=== PATIENT | male | born 1955 | race Caucasian/White ===

== ENCOUNTER 2021-09-06 12:02 | Emergency (ER) | payer OTHER ==
[2021-09-06] MEDS ORDERED: HYDROcodone/Acetaminophen 7.5/325 mg Tablet ONE (12:54)
== END 2021-09-06 13:24 | disposition home or self-care (01) ==
LOC: CSHERS 12:02
DX: S93.401A Sprain of unspecified ligament of right ankle, initial encounter (principal); E11.9 Type 2 diabetes mellitus without complications; X50.9XXA Other and unspecified overexertion or strenuous movements or postures, initial encounter

== ENCOUNTER 2022-02-07 16:45 | Inpatient (IN) | payer OTHER ==
[~2022-02-07 16:45] MED LIST: Iopamidol 300 61% 100 ML VIAL FS ONE
[2022-02-07] MEDS ORDERED: Pantoprazole 40 MG VIAL ONE (17:26)
[2022-02-07 17:44] LABS: #Monocytes 0.4 10x3/uL (0.0-1.1); #Neutrophils 4.7 10x3/uL (1.5-8.4); %Basophils 0.5 % (0.0-2.0); %Eosinophils 0.5 % (0.0-6.0); %Lymphocytes 12.4 % (18.0-47.0); %Monocytes 6.1 % (0.0-10.0); %Neutrophils 80.2 % (40.0-75.0); Hemoglobin 8.6 g/dL (13.5-17.5); Mean Corpuscular HGB CONC 32.6 g/dL (32.0-36.0); Mean Corpuscular Hemoglobin 28.3 pg (27.0-33.0); Mean Corpuscular Volume 86.8 fl (81.2-95.1); Mean Platelet Volume 9.8 fl (7.4-10.4); Platelet Count 146 10x3/uL (150-450); RBC Distribution Width 18.6 % (11.5-14.5); Red Blood Cell (RBC) Count 3.04 10x6/uL (4.32-5.72); White Blood Cell (WBC) Count 5.9 10x3/uL (3.5-10.5)
[2022-02-07 17:51] LABS: INR-International Normal Ratio 1.1; PTT 25.4 sec (22.0-33.0); Prothrombin Time 11.9 sec (9.5-12.1)
[2022-02-07 17:56] LABS: ALT (SGPT) 47 U/L (8-55); AST (SGOT) 70 U/L (5-34); Albumin 3.3 g/dL (3.4-4.8); Alkaline Phosphatase 365 U/L (40-110); Anion Gap 17 mmol/L (10-20); BUN (Urea Nitrogen) 21 mg/dL (8.4-25.7); Bilirubin, Total 1.3 mg/dL (0.2-1.2); CK (CPK) 101 U/L (30-200); Calc. Creatinine Clearance 0 mL/min (70-130); Calcium 8.8 mg/dL (7.8-10.44); Carbon Dioxide 22 mmol/L (23-31); Chloride 103 mmol/L (98-107); Estimated GFR 103; Globulin 2.9 g/dL (2.4-3.5); Glucose 123 mg/dL (80-115); Potassium 3.6 mmol/L (3.5-5.1); Protein, Total 6.2 g/dL (5.8-8.1); Sodium 138 mmol/L (136-145)
[2022-02-07] MEDS ORDERED: Promethazine HCl 25 MG/ML VIAL ONE (18:06)
[2022-02-07] MEDS ORDERED: Morphine 4 MG/ML VIAL ONE (18:07)
[2022-02-07 18:16] LABS: Iron 140 ug/dL (65-175); Iron Binding Capacity, Total 284 mcg/dL (261-462)
[2022-02-07 19:46] LABS: Bilirubin Neg (Negative); Blood, Urine 10 (Negative); Glucose, Urine (Dipstick) Normal (Negative); Ketone, Urine 5 mg/dL (Negative); Leukocyte Negative (Negative); Nitrite Negative (Negative); Protein, Urine (Dipstick) Negative (Neg-Trace); Urobilinogen Normal mg/dL (Less than 2)
[2022-02-07 19:50] LABS: Clarity Clear (Clear)
[2022-02-07 19:52] LABS: Bacteria/HPF None Seen HPF (None Seen); Squamous Epithelial 0-3 HPF (0-3)
[2022-02-07 20:24] LABS: Lactic Acid 4.7 mmol/L (0.5-2.2)
[2022-02-07] MEDS ORDERED: Senokot S 8.6-50 MG TAB PO PRN (20:49)
[2022-02-07] MEDS ORDERED: Dextrose 50% Abboject 50 ML SYRINGE SLOW IVP PRN (20:49)
[2022-02-07] MEDS ORDERED: Calcium Carbonate 500 MG ChewTAB PO PRN (20:49)
[2022-02-07] MEDS ORDERED: Dextrose 5% in Water 1,000 ML IV PRN (20:49)
[2022-02-07] MEDS ORDERED: Sodium Chloride 0.9% 1,000 ML IV SCH (21:00)
[2022-02-07] MEDS: Morphine 2 MG/ML VIAL SLOW IVP PRN (22:24)
[2022-02-07] MEDS: metroNIDAZOLE 500 MG in Premix Bag 1 BAG IVPB SCH (22:26)
[2022-02-07] MEDS: Sodium Chloride 0.9% 1,000 ML IV SCH (22:36)
[2022-02-07 22:44] LABS: Hemoglobin 7.4 g/dL (13.5-17.5); Mean Corpuscular HGB CONC 33.2 g/dL (32.0-36.0); Mean Corpuscular Hemoglobin 27.8 pg (27.0-33.0); Mean Corpuscular Volume 83.8 fl (81.2-95.1); Mean Platelet Volume 9.4 fl (7.4-10.4); Platelet Count 123 10x3/uL (150-450); RBC Distribution Width 18.6 % (11.5-14.5); Red Blood Cell (RBC) Count 2.66 10x6/uL (4.32-5.72); White Blood Cell (WBC) Count 4.5 10x3/uL (3.5-10.5)
[2022-02-07] MEDS ORDERED: Pantoprazole 40 MG VIAL IVP SCH (23:00)
[2022-02-07 23:06] VITALS: BMI 22.3
[2022-02-07 23:19] LABS: SARS-CoV-2 NAA Rapid Test Not Detected (NotDetected)
[2022-02-07] MEDS: cefTRIAXone\\ROCEPHIN 2 GM in Sodium Chloride 0.9% 100 ML IVPB SCH (23:56)
[2022-02-08] MEDS: Ondansetron PF 4 MG/2 ML Vial IVP PRN (02:27)
[2022-02-08] MEDS: Morphine 2 MG/ML VIAL SLOW IVP PRN ×5 (02:27→21:16)
[2022-02-08] MEDS: metroNIDAZOLE 500 MG in Premix Bag 1 BAG IVPB SCH ×3 (05:24→21:06)
[2022-02-08 06:02] LABS: Lactic Acid 3.6 mmol/L (0.5-2.2)
[2022-02-08 06:11] LABS: ALT (SGPT) 31 U/L (8-55); AST (SGOT) 63 U/L (5-34); Albumin 2.5 g/dL (3.4-4.8); Alkaline Phosphatase 258 U/L (40-110); Anion Gap 13 mmol/L (10-20); BUN (Urea Nitrogen) 16 mg/dL (8.4-25.7); Calc. Creatinine Clearance 134 mL/min (70-130); Calcium 7.7 mg/dL (7.8-10.44); Carbon Dioxide 20 mmol/L (23-31); Chloride 108 mmol/L (98-107); Estimated GFR 106; Globulin 2.3 g/dL (2.4-3.5); Glucose 125 mg/dL (80-115); Potassium 3.8 mmol/L (3.5-5.1); Protein, Total 4.8 g/dL (5.8-8.1); Sodium 137 mmol/L (136-145)
[2022-02-08 06:12] LABS: #Eosinphils 0.1 10x3/uL (0.0-0.5); #Monocytes 0.4 10x3/uL (0.0-1.1); #Neutrophils 3.1 10x3/uL (1.5-8.4); %Basophils 0.7 % (0.0-2.0); %Eosinophils 1.4 % (0.0-6.0); %Lymphocytes 15.1 % (18.0-47.0); %Monocytes 8.3 % (0.0-10.0); %Neutrophils 73.8 % (40.0-75.0); Hemoglobin 7.4 g/dL (13.5-17.5); Mean Corpuscular HGB CONC 33.6 g/dL (32.0-36.0); Mean Corpuscular Hemoglobin 28.2 pg (27.0-33.0); Mean Platelet Volume 9.4 fl (7.4-10.4); Platelet Count 106 10x3/uL (150-450); RBC Distribution Width 18.3 % (11.5-14.5); Red Blood Cell (RBC) Count 2.62 10x6/uL (4.32-5.72); White Blood Cell (WBC) Count 4.2 10x3/uL (3.5-10.5)
[2022-02-08] MEDS: Pantoprazole 40 MG VIAL IVP SCH ×2 (08:31→21:06)
[2022-02-08] MEDS: Sodium Chloride 0.9% 1,000 ML IV SCH (08:31)
[2022-02-08 08:39] LABS: #Eosinphils 0.1 10x3/uL (0.0-0.5); #Monocytes 0.4 10x3/uL (0.0-1.1); #Neutrophils 3.2 10x3/uL (1.5-8.4); %Basophils 0.5 % (0.0-2.0); %Eosinophils 1.2 % (0.0-6.0); %Lymphocytes 13.7 % (18.0-47.0); %Monocytes 9.2 % (0.0-10.0); %Neutrophils 74.7 % (40.0-75.0); Hemoglobin 7.1 g/dL (13.5-17.5); Mean Corpuscular HGB CONC 32.1 g/dL (32.0-36.0); Mean Corpuscular Hemoglobin 27.6 pg (27.0-33.0); Platelet Count 105 10x3/uL (150-450); RBC Distribution Width 18.3 % (11.5-14.5); Red Blood Cell (RBC) Count 2.57 10x6/uL (4.32-5.72); White Blood Cell (WBC) Count 4.2 10x3/uL (3.5-10.5)
[2022-02-08] MEDS ORDERED: Furosemide 40 MG/4 ML VIAL SLOW IVP SCH (10:45)
[2022-02-08] MEDS: Albumin 25% 25 GM/100 ML BOT IVPB SCH ×3 (11:58→22:44)
[2022-02-08] MEDS: HumaLOG 300 UNITS/3 ML VIAL SC PRN ×2 (12:23→16:24)
[2022-02-08 17:42] LABS: Campy jejuni + coli by PCR Negative (Negative); STEC Shiga Toxin 1+2 Negative (Negative); Salmonella spp. by PCR Negative (Negative); Shigella spp + EIEC by PCR Negative (Negative)
[2022-02-08] MEDS: cefTRIAXone\\ROCEPHIN 2 GM in Sodium Chloride 0.9% 100 ML IVPB SCH (22:43)
[2022-02-09] MEDS: Morphine 2 MG/ML VIAL SLOW IVP PRN ×3 (03:32→18:25)
[2022-02-09] MEDS: Ondansetron PF 4 MG/2 ML Vial IVP PRN (03:36)
[2022-02-09 04:36] LABS: Anion Gap 13 mmol/L (10-20); BUN (Urea Nitrogen) 11 mg/dL (8.4-25.7); Calc. Creatinine Clearance 114 mL/min (70-130); Carbon Dioxide 22 mmol/L (23-31); Chloride 104 mmol/L (98-107); Estimated GFR 101; Glucose 182 mg/dL (80-115); Potassium 3.1 mmol/L (3.5-5.1); Sodium 136 mmol/L (136-145)
[2022-02-09 04:40] LABS: Hemoglobin 6.7 g/dL (13.5-17.5); Platelet Count 78 10x3/uL (150-450)
[2022-02-09] MEDS: Albumin 25% 25 GM/100 ML BOT IVPB SCH (04:40)
[2022-02-09] MEDS: metroNIDAZOLE 500 MG in Premix Bag 1 BAG IVPB SCH ×3 (04:40→20:34)
[2022-02-09] MEDS: HumaLOG 300 UNITS/3 ML VIAL SC PRN (05:50)
[2022-02-09] MEDS: Acetaminophen 325 MG TAB PO PRN (08:50)
[2022-02-09] MEDS: Furosemide 40 MG/4 ML VIAL SLOW IVP SCH (08:50)
[2022-02-09] MEDS: Pantoprazole 40 MG VIAL IVP SCH ×2 (08:50→20:34)
[2022-02-09] MEDS ORDERED: Morphine 4 MG/ML VIAL ONE (10:10)
[2022-02-09] MEDS ORDERED: Ondansetron PF 4 MG/2 ML Vial ONE ×2 (10:12→12:08)
[2022-02-09] MEDS ORDERED: PROPOFOL 20 ML ONE ×2 (11:15→11:42)
[2022-02-09] MEDS ORDERED: PHENYLEPHRINE-NS 100 MCG/ML 10 ML SYRINGE ONE (11:40)
[2022-02-09] MEDS: Spironolactone 25 MG TAB PO SCH (18:25)
[2022-02-09] MEDS: Potassium Chloride 20 MEQ TAB PO SCH ×2 (20:34→21:45)
[2022-02-09] MEDS: cefTRIAXone\\ROCEPHIN 2 GM in Sodium Chloride 0.9% 100 ML IVPB SCH (21:56)
[2022-02-09] MEDS: Potassium Chloride 20 MEQ in Premix Bag 1 BAG IVPB SCH (21:56)
[2022-02-10] MEDS: Potassium Chloride 20 MEQ in Premix Bag 1 BAG IVPB SCH (01:34)
[2022-02-10] MEDS: Morphine 2 MG/ML VIAL SLOW IVP PRN (03:47)
[2022-02-10] MEDS: Acetaminophen 325 MG TAB PO PRN (04:52)
[2022-02-10] MEDS: metroNIDAZOLE 500 MG in Premix Bag 1 BAG IVPB SCH ×3 (05:02→22:09)
[2022-02-10 05:03] LABS: Hemoglobin 8.1 g/dL (13.5-17.5); Mean Corpuscular HGB CONC 34.2 g/dL (32.0-36.0); Mean Corpuscular Hemoglobin 28.6 pg (27.0-33.0); Mean Corpuscular Volume 83.7 fl (81.2-95.1); Mean Platelet Volume 9.8 fl (7.4-10.4); RBC Distribution Width 17.8 % (11.5-14.5); Red Blood Cell (RBC) Count 2.83 10x6/uL (4.32-5.72); White Blood Cell (WBC) Count 3.8 10x3/uL (3.5-10.5)
[2022-02-10 05:04] LABS: ALT (SGPT) 26 U/L (8-55); AST (SGOT) 54 U/L (5-34); Albumin 3.2 g/dL (3.4-4.8); Alkaline Phosphatase 188 U/L (40-110); Anion Gap 16 mmol/L (10-20); BUN (Urea Nitrogen) 11 mg/dL (8.4-25.7); Bilirubin, Total 1.2 mg/dL (0.2-1.2); Calc. Creatinine Clearance 104 mL/min (70-130); Calcium 8.3 mg/dL (7.8-10.44); Carbon Dioxide 20 mmol/L (23-31); Chloride 103 mmol/L (98-107); Estimated GFR 98; Globulin 2.4 g/dL (2.4-3.5); Glucose 255 mg/dL (80-115); Potassium 3.6 mmol/L (3.5-5.1); Protein, Total 5.6 g/dL (5.8-8.1); Sodium 135 mmol/L (136-145)
[2022-02-10 05:05] LABS: Platelet Count 85 10x3/uL (150-450)
[2022-02-10 05:45] LABS: MDiff Complete? YES
[2022-02-10 05:48] LABS: Eosinophils 1 % (0-10); Lymphocytes 7 % (21-51); Monocytes 12 % (0-10); Neutrophil 80 % (42-75)
[2022-02-10 05:49] LABS: Ovalocytes SLIGHT = 2-5 cells (100X) (0-1/hpf)
[2022-02-10 05:50] LABS: Platelet Morphology Comment Appears Decreased
[2022-02-10 06:02] LABS: HBSAg Index 0.38 S/CO (0-0.99); Hep B Surf Ag NonReactive S/CO (NonReactive)
[2022-02-10] MEDS: HumaLOG 300 UNITS/3 ML VIAL SC PRN ×4 (06:33→22:12)
[2022-02-10] MEDS ORDERED: Lidocaine 1% PF 5 ML VIAL ONE (08:43)
[2022-02-10] MEDS ORDERED: Sodium Bicarbonate 2.5 MEQ/5 ML VIAL ONE (08:44)
[2022-02-10] MEDS: Spironolactone 25 MG TAB PO SCH ×2 (09:34→16:55)
[2022-02-10] MEDS: Furosemide 40 MG/4 ML VIAL SLOW IVP SCH (09:35)
[2022-02-10] MEDS: Pantoprazole 40 MG VIAL IVP SCH (09:35)
[2022-02-10 14:50] LABS: HBCM Index 0.05 S/CO (0-0.79); Hep A IgM AB Non-Reactive (NonReactive); Hep A IgM S/CO 0.11 S/CO (0-0.79); Hep C IgG Ab Non-Reactive (NonReactive); Hep C Index 0.08 S/CO (0-0.79); Hepatitis B Core IgM Abs Non-Reactive (NonReactive)
[2022-02-10] MEDS ORDERED: Octreotide Acetate 1,250 MCG in Sodium Chloride 0.9% 250 ML 250 ML IVPB SCH (17:15)
[2022-02-10] MEDS: cefTRIAXone\\ROCEPHIN 2 GM in Sodium Chloride 0.9% 100 ML IVPB SCH (23:32)
[2022-02-11 04:39] LABS: #Eosinphils 0.1 10x3/uL (0.0-0.5); #Monocytes 0.6 10x3/uL (0.0-1.1); %Basophils 0.5 % (0.0-2.0); %Eosinophils 1.1 % (0.0-6.0); %Lymphocytes 16.2 % (18.0-47.0); %Monocytes 13.4 % (0.0-10.0); %Neutrophils 68.3 % (40.0-75.0); Hemoglobin 8.3 g/dL (13.5-17.5); Mean Corpuscular HGB CONC 34.6 g/dL (32.0-36.0); Mean Corpuscular Hemoglobin 28.9 pg (27.0-33.0); Mean Corpuscular Volume 83.6 fl (81.2-95.1); Mean Platelet Volume 10.2 fl (7.4-10.4); Platelet Count 97 10x3/uL (150-450); Red Blood Cell (RBC) Count 2.87 10x6/uL (4.32-5.72); White Blood Cell (WBC) Count 4.4 10x3/uL (3.5-10.5)
[2022-02-11 04:54] LABS: Anion Gap 16 mmol/L (10-20); BUN (Urea Nitrogen) 9 mg/dL (8.4-25.7); Calc. Creatinine Clearance 111 mL/min (70-130); Calcium 8.3 mg/dL (7.8-10.44); Carbon Dioxide 22 mmol/L (23-31); Chloride 100 mmol/L (98-107); Estimated GFR 100; Glucose 222 mg/dL (80-115); Sodium 135 mmol/L (136-145)
[2022-02-11 05:00] LABS: Potassium 2.9 mmol/L (3.5-5.1)
[2022-02-11] MEDS ORDERED: Potassium Chloride 20 MEQ TAB PO SCH ×2 (05:30→09:00)
[2022-02-11] MEDS ORDERED: Potassium Chloride 20 MEQ in Premix Bag 1 BAG IVPB SCH (05:30)
[2022-02-11] MEDS: metroNIDAZOLE 500 MG in Premix Bag 1 BAG IVPB SCH ×3 (06:49→21:00)
[2022-02-11] MEDS: Furosemide 40 MG TAB PO SCH (06:49)
[2022-02-11] MEDS: Morphine 2 MG/ML VIAL SLOW IVP PRN ×3 (08:34→16:39)
[2022-02-11] MEDS: Magnesium Oxide 400 MG TAB PO SCH ×2 (09:00→21:00)
[2022-02-11] MEDS: Spironolactone 25 MG TAB PO SCH (09:00)
[2022-02-11] MEDS: traMADol HCl 50 MG TAB PO PRN (09:33)
[2022-02-11] MEDS: Ondansetron PF 4 MG/2 ML Vial IVP PRN (09:34)
[2022-02-11] MEDS: HumaLOG 300 UNITS/3 ML VIAL SC PRN ×2 (11:46→21:08)
[2022-02-11 14:13] LABS: Lipase 6 U/L (8-78); Magnesium 1.9 mg/dL (1.6-2.6); Potassium 4.6 mmol/L (3.5-5.1); Troponin I Less than 0.010 ng/mL (< 0.028)
[2022-02-11] MEDS: cefTRIAXone\\ROCEPHIN 2 GM in Sodium Chloride 0.9% 100 ML IVPB SCH (22:36)
[2022-02-12] MEDS: metroNIDAZOLE 500 MG in Premix Bag 1 BAG IVPB SCH ×2 (05:43→13:10)
[2022-02-12 05:46] LABS: #Eosinphils 0.2 10x3/uL (0.0-0.5); #Monocytes 0.5 10x3/uL (0.0-1.1); #Neutrophils 2.3 10x3/uL (1.5-8.4); %Basophils 0.6 % (0.0-2.0); %Eosinophils 4.7 % (0.0-6.0); %Lymphocytes 18.3 % (18.0-47.0); %Monocytes 13.6 % (0.0-10.0); %Neutrophils 62.5 % (40.0-75.0); Hemoglobin 7.7 g/dL (13.5-17.5); Mean Corpuscular HGB CONC 32.9 g/dL (32.0-36.0); Mean Corpuscular Hemoglobin 28.7 pg (27.0-33.0); Mean Corpuscular Volume 87.3 fl (81.2-95.1); Mean Platelet Volume 10.4 fl (7.4-10.4); Platelet Count 89 10x3/uL (150-450); RBC Distribution Width 18.6 % (11.5-14.5); Red Blood Cell (RBC) Count 2.68 10x6/uL (4.32-5.72); White Blood Cell (WBC) Count 3.6 10x3/uL (3.5-10.5)
[2022-02-12 05:57] LABS: Anion Gap 16 mmol/L (10-20); BUN (Urea Nitrogen) 9 mg/dL (8.4-25.7); Calc. Creatinine Clearance 119 mL/min (70-130); Calcium 7.7 mg/dL (7.8-10.44); Carbon Dioxide 21 mmol/L (23-31); Chloride 103 mmol/L (98-107); Estimated GFR 102; Glucose 144 mg/dL (80-115); Magnesium 1.9 mg/dL (1.6-2.6); Potassium 3.7 mmol/L (3.5-5.1); Sodium 136 mmol/L (136-145)
[2022-02-12] MEDS ORDERED: Spironolactone 25 MG TAB PO SCH (08:00)
[2022-02-12] MEDS: Furosemide 40 MG TAB PO SCH (08:33)
[2022-02-12] MEDS: Magnesium Oxide 400 MG TAB PO SCH (08:33)
[2022-02-12 12:00] VITALS: BP 114/57; TEMP 97.9
[2022-02-12] MEDS: traMADol HCl 50 MG TAB PO PRN (13:11)
[2022-02-12] MEDS: HumaLOG 300 UNITS/3 ML VIAL SC PRN (13:12)
[2022-02-12] MEDS: Morphine 2 MG/ML VIAL SLOW IVP PRN (13:21)
== END 2022-02-12 16:30 | disposition home or self-care (01) | DRG 441 ==
LOC: CSHERS 16:45 → CSHTELE 21:15
PROVIDERS: ADMIT Student in an Organized Health Care Education/Training Program; ATTEND Internal Medicine Geriatric Medicine
PROC: 30233N1 Transfusion of Nonautologous Red Blood Cells into Peripheral Vein, Percutaneous Approach (ICD-10-PCS; principal; 2022-02-08)
PROC: 06L38CZ Occlusion of Esophageal Vein with Extraluminal Device, Via Natural or Artificial Opening Endoscopic (ICD-10-PCS; 2022-02-09)
PROC: 0DJD8ZZ Inspection of Lower Intestinal Tract, Via Natural or Artificial Opening Endoscopic (ICD-10-PCS; 2022-02-09)
PROC: 0W9G3ZZ Drainage of Peritoneal Cavity, Percutaneous Approach (ICD-10-PCS; 2022-02-10)
DX: K76.6 Portal hypertension (principal); A41.9 Sepsis, unspecified organism; R65.20 Severe sepsis without septic shock; I85.11 Secondary esophageal varices with bleeding; A09 Infectious gastroenteritis and colitis, unspecified; C78.7 Secondary malignant neoplasm of liver and intrahepatic bile duct; D62 Acute posthemorrhagic anemia; C18.7 Malignant neoplasm of sigmoid colon; R64 Cachexia; R18.0 Malignant ascites; K51.018 Ulcerative (chronic) pancolitis with other complication; I47.2 Ventricular tachycardia; E86.0 Dehydration; E87.6 Hypokalemia; E11.9 Type 2 diabetes mellitus without complications; G89.29 Other chronic pain; D63.0 Anemia in neoplastic disease; K31.89 Other diseases of stomach and duodenum; L89.152 Pressure ulcer of sacral region, stage 2; M54.2 Cervicalgia; K52.9 Noninfective gastroenteritis and colitis, unspecified; Z20.822 Contact with and (suspected) exposure to COVID-19; D69.6 Thrombocytopenia, unspecified; Z79.4 Long term (current) use of insulin; Z79.899 Other long term (current) drug therapy; Z90.49 Acquired absence of other specified parts of digestive tract; Z90.89 Acquired absence of other organs; Z98.1 Arthrodesis status; Z80.3 Family history of malignant neoplasm of breast; Z68.22 Body mass index [BMI] 22.0-22.9, adult
CPT/HCPCS: 36415; 36416; 36430; 49083; 71045; 74177; 76705; 80048; 80053; 80074; 81003; 81015; 82105; 82140; 82550; 82728; 83540; 83550; 83605; 83630; 83690; 83735; 84484; 85014; 85018; 85025; 85049; 85610; 85730; 86850; 86900; 86901; 87040; 87070; 87205; 87324; 87449; 87505; 88112; 88305; 93005; 93306; 96361; 96374; 96375; 97139; C9113; J0696; J1940; J2270; J2354; J2405; J2550; J2704; J3480; J3490; J7050; P9016; P9047; Q9967; U0002